=== PATIENT | female | born 1975 | race Caucasian/White ===

== ENCOUNTER → 2017-12-25 12:03 | Outpatient (CLI) | payer BC | END | disposition home or self-care (01) | LOC: D.CT 12:03 | DX: R07.9 Chest pain, unspecified (principal); R06.02 Shortness of breath; I82.409 Acute embolism and thrombosis of unspecified deep veins of unspecified lower extremity ==

== ENCOUNTER → 2018-06-29 12:39 | Outpatient (CLI) | payer BC | END | disposition home or self-care (01) | LOC: D.US 12:39 | PROVIDERS: ATTEND Family Medicine | DX: R60.0 Localized edema (principal) ==